=== PATIENT | male | born 2005 | race Caucasian/White ===

== ENCOUNTER 2024-07-24 19:34 | Emergency (ER) | payer OTHER, SELFPAY ==
--- OUTSIDE RECORDS SUMMARY | 2024-07-24 19:36 | XMS_ITS | Referral Summary ---
Author Organization [facility] Address [address] [place] [address] Care Team Providers Care City Manager Name Role Phone Sam Shaver DO Primary Care Provider [phone] Allergies Active Allergy Reactions Criticality Noted Date Comments Bee Other 11/26/2019 Carries Epi pen Cats Unknown Reaction 11/26/2019 Meningococcal Group B Vaccine Hives,Other Medium 11/27/2023 Joint swelling Medications Cholecalciferol (VITAMIN D) 1000 UNITS PO Tab Take 1 Tab by mouth once per day. Active [place]-3 Fatty Acids (OMEGA 3 PO) Take by mouth. Activ e Cyanocobalamin (VITAMIN B 12 PO) Take by mouth. Activ e Albuterol HFA Inhaler 108 (90 Base) MCG/ACT IN Aero SolnIndications :Bronchodilatio n Therapy 2 Puffs inhale every 6 hours as needed. 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 went away Immunizations Name Administration Dates Next Due DTaP 01/13/2008, 5,06/30/2004,04/16,03/03/2004 Dtap (Daptacel) 01/13/2008, 5,06/30/2004,04/16,03/03/2004 HIB (Haemophilus) 01/04/2005, 5,05/03/2004,02/14 HPV9 (Gardasil9) 05/31/2020,01/27/2020, 0 Hep A Ped/adol 2 Dose Rob 01/13/2008,01/09/2007 Hep B Peds/adol, 3 Dose Rob 10/10/2004, 4,01/26/2004 Influenza (Quadrivalent) 01/27/2020,04/19/2017,1 Influenza H1N1 06/04/2009,04/23/2009 Influenza H1n1 Injection 06/04/2009,04/23/2009 Influenza Quadrivalent Nasal (Flumist) 03/01/2015 Influenza Quadrivalent Prese rvative Free 02/12/2021,04/19/2017 Influenza, Injectable, Mdck, Preservative Free, Quadrival 01/29/2019 Influenza, live, trivalent, intranasal 03/19/2008 Influenza, split virus, trivalent, PF 04/17/2024 MMR 01/13/2008,01/04/2005 Meningococcal B, Recombinant (Trumenba) 11/23/2023,11/01/2022 Meningococcal Mcv4p (Menactra) 01/27/2020,2015 PSV7 (PREVNAR) 01/04/2005, 5,05/03/2004,02/14 Pneumococcal 01/04/2005, 5,05/03/2004,02/14 Polio (IPV) 01/13/2008, 8,06/30/2004,02/15 Tdap (Adacel) 2014 2024 Varicella 01/13/2008,01/04/2005 Social History Tobacco Use Types Packs/Day Years Used Date Smoking Tobacco: Never Smokeless Tobacco: Never Tobacco Cessation:Counseling Given: Not Answered Sex and Gender Information Value Date Recorded Sex Assigned at Male 10/30/2022 9:28 AM CDT Legal Sex Male 12:00 PM CDT Gender Identity Male 10/30/2022 9:28 AM CDT Sexual Orientation Bisexual 11/23/2023 7: 26 AM CDT Last Filed Vital Signs Vital Sign Reading Time Taken Comments Blood Pressure 138/66 04/17/2024 7:26 AM MANAGER DELI Pulse 78 04/17/2024 7:26 AM MANAGER DELI Temperature 37.1 C (98.7 F) 04/17/2024 7:26 AM MANAGER DELI Respiratory Rate 16 11/23/2023 7:56 AM CDT Oxygen Saturation 99% 11/01/2022 7:48 AM CDT Inhaled Oxygen Concentration - - Weight 63.7 kg (140 lb 8 oz) 04/17/2024 7:26 AM MANAGER DELI Height 175.9 cm (5' 9.25) 11/23/2023 7:56 AM CD T Body Mass Index 20.6 11/23/2023 7:56 AM CDT Plan of Treatment Not on file Insurance ALL OTHER [facility] ALL OTHER Care Teams City Manager Relationship Specialty Start Date End Date Sam Shaver DO [address] [place] [address] [email or web address] PCP - General Family Medicine 12/18/20
--- OUTSIDE RECORDS SUMMARY | 2024-07-24 19:37 | XMS_ITS | Clinical Summary ---
Author Organization [facility] Address [address] [place] [address] Care Team Providers Care Acetylene Torch Solderer Name Role Phone Sam Shaver DO Primary Care Provider Allergies Active Allergy Reactions Criticality Noted Date Comments Bee Other 11/26/2019 Carries Epi pen Cats Unknown Reaction 11/26/2019 Meningococcal Group B Vaccine Hives,Other Medium 11/27/2023 Joint swelling Medications Cholecalciferol (VITAMIN D) 1000 UNITS PO Tab Take 1 Tab by mouth once per day. Active [place]-3 Fatty Acids (OMEGA 3 PO) Take by [...] 8,06/30/2004,02/15 Tdap (Adacel) 2014 2024 Varicella 01/13/2008,01/04/2005 Family History Medical History Relation Name Comments Tremor Father Other Maternal Grandmother pvc Blood Disease Mother ITP Other Mother anemia Hypertension Paternal Uncle Relation Name Status Comments Father Alive Michael 6'0 QA Mgr Maternal Grandmother Alive Mother Estee Batista 5'4 SAHM Paternal Uncle Alive Social History Tobacco Use Types Packs/Day Years Used Date Smoking Tobacco: Never Smokeless Tobacco: Never Tobacco Cessation:Counseling Given: Not Answered Sex and Gender Information Value Date Recorded Sex Assigned at Male 10/30/2022 9:28 AM CDT Legal Sex Male 12:00 PM CDT Gender Identity Male 10/30/2022 9:28 AM CDT Sexual Orientation Bisexual 11/23/2023 7 :26 AM CDT Last Filed Vital Signs Vital Sign Reading Time Taken Comments Blood Pressure 138/66 04/17/2024 7:26 AM TANK BUILDER AND ERECTOR Pulse 78 04/17/2024 7:26 AM TANK BUILDER AND ERECTOR Temperature 37.1 C (98.7 F) 04/17/2024 7:26 AM TANK BUILDER AND ERECTOR Respiratory Rate 16 11/23/2023 7:56 AM CDT Oxygen Saturation 99% 11/01/2022 7:48 AM CDT Inhaled Oxygen Concentration - - Weight 63.7 kg (140 lb 8 oz) 04/17/2024 7:26 AM TANK BUILDER AND ERECTOR Height 175.9 cm (5' 9.25) 11/23/2023 7:56 AM CD T Body Mass Index 20.6 11/23/2023 7:56 AM CDT Plan of Treatment Health Maintenance Due Date Last Done Comments COVID-19 Vaccine ( season) 2023 04/02/2021, 08/27/2020, 08/04/2020 Depression Screening 11/22/2024 11/23/2023 DTaP/Tdap/Td Vaccines (7 - Td or Tdap) 2024 2014, 01/13/2008, 01/13/2008, Additional history exists Physical 11/22/2026 11/23/2023 Pneumococcal: Pediatric/ High Risk Adult 18-64 Aged Out 01/04/2005, 01/04/2005, 06/30/2004, Additional history exists No longer eligible based on patient's age to complete this topic HPV VACCINE Completed 05/31/2020, 01/14, 11/26/2019 FLU VACCINE Completed 04/17/2024, 01/16, 01/27/2020, Additional history exists Insurance [employer] ALL OTHER [employer] ALL OTHER Care Teams Acetylene Torch Solderer Relationship Specialty Start Date End Date Sam Shaver DO [address] [place] [address] [email or web address] PCP - General Family Medicine 12/18/20
[2024-07-24 19:40] VITALS: BP 136/76; PULSE 73; RESP 16; TEMP 36.9; O2SAT 100; BMI 19.6
--- NOTE | 2024-07-24 20:21 | ED_ITS ---
HPI - Chest Pain General Chief Complaint: Chest Pain Stated Complaint: chest pain Time Seen by Provider: 07/24/24 19:45 History of Present Illness HPI narrative: This 18-year-old male comes in reporting chest discomfort on and off over the past couple days. He states that he also feels some discomfort in the left posterior neck and sometimes down into his left arm. He does not report any nausea, vomiting, lightheadedness, shortness of breath, or diaphoresis. He has good exercise tolerance. He does not have any cardiac risk factors. He was seen about fiber 6 months ago in the clinic with similar complaints and at that time it was thought that this was largely due to anxiety. The patient states that he can reproduce the pain when pushing on certain areas of his chest. Related Data Home Medications ?Medication ?Instructions ?Recorded ?Confirmed No Known Home Medications 03/03/24 03/03/24 Allergies Allergy/AdvReac Type Severity Reaction Status Date / Time meningococcal vaccine B and C Allergy Intermediate Hives Verified 03/03/24 14:26 Review of Systems Status of ROS Reports: 10 or more systems reviewed and unremarkable except as noted in History and below Narrative Constitutional: No fevers, no weight gain or loss. Eyes: No discharge. No vision changes. HENT: No congestion, no sore throat, no ear pain. Cardiovascular: Chest discomfort as described above. He does report some occasional palpitations also. Respiratory: No shortness of breath, no wheezes, no cough. Gastrointestinal: No abdominal pain, no vomiting, no diarrhea. Genitourinary: No dysuria, no hematuria. Musculoskeletal: Normal range of motion. Skin: No rashes, no pruritis. Neurological: No dizziness, weakness, sensory change, speech change. Endo/Heme/Allergies: No bruising or bleeding. No polydipsia. Pysch: no suicidality, no anxiety, no insomnia. All other systems reviewed and are negative. [facility] Social History (Updated 03/03/24 @ 15:13 by Gianna Salter ~ YUN) What is your current living situation?: I presently have a place to live Problems where you live: no known problems In the past 12 months, utilities in danger of being shut off: no In past 12 months, lack of transportation kept you from medical appts, meetings, work, or getting things needed for daily living: no In the past 12 mos, have been you worried that your food would run out before you had money to buy more?: never true In the past 12 mos, the food you bought just didn't last and you didn't have money to buy more?: never true Smoking Status: Never smoker Do you use any of these nicotine containing products: None How often do you have a drink containing alcohol: never AUDIT-C Alcohol total score: 0 Non-prescribed substance use: denies use How often does anyone, including family, friends and others, physically hurt you : never How often does anyone, including family, friends and others, insult or talk down to you: never How often does anyone, including family, friends and others, threaten you with harm: never How often does anyone, including family, friends and others, scream or curse at you: never service: No Exam Narrative Exam Narrative: Constitutional: Well-developed, well-nourished, no acute distress. HEENT: Normocephalic, atraumatic. Neck: Normal range of motion. Nontender. Supple. Heart: Regular. No murmurs. Normal rate. Intact distal pulses. Lungs: Clear to auscultation. No wheezes, rhonchi, or rales. Abdomen: Normal bowel sounds. Nontender. No rebound tenderness. Genitalia: Deferred. Back: No midline tenderness. Normal range of motion. Extremities: Normal range of motion. No injury. Skin: Intact. No rash. Warm. No erythema or pallor. Neurologic: No altered sensation. No weakness. Alert and oriented. Psychiatric: No suicidality. No anxiety or depression. No insomnia. Nursing notes and vitals signs are reviewed. Const Vital Signs, click to edit/add: Vital Signs - 24 hr 07/24/24 19:40 Temperature 98.4 F Pulse Rate [Apical] 73 Respiratory Rate 16 Blood Pressure [Right Upper Arm] 136/76 Pulse Oximetry 100 Oxygen Delivery Method Room Air Course Vital Signs Vital signs: Initial Vital Signs Temperature 98.4 F 07/24/24 19:40 Temperature Source Temporal Artery Scan 07/24/24 19:40 Pulse Rate 73 07/24/24 19:40 Pulse Rhythm Regular 07/24/24 19:40 Respiratory Rate 16 07/24/24 19:40 Blood Pressure 136/76 07/24/24 19:40 Blood Pressure Mean 96 07/24/24 19:40 Pulse Oximetry 100 07/24/24 19:40 Oxygen Delivery Method Room Air 07/24/24 19:40 Vital Signs Temperature 98.4 F 07/24/24 19:40 Pulse Rate 73 07/24/24 19:40 Respiratory Rate 16 07/24/24 19:40 Blood Pressure 136/76 07/24/24 19:40 Pulse Oximetry 100 07/24/24 19:40 Oxygen Delivery Method Room Air 07/24/24 19:40 Temperature 98.4 F 07/24/24 19:40 Pulse Rate 73 07/24/24 19:40 Respiratory Rate 16 07/24/24 19:40 Blood Pressure 136/76 07/24/24 19:40 Pulse Oximetry 100 07/24/24 19:40 Oxygen Delivery Method Room Air 07/24/24 19:40 MDM - Chest Pain MDM Narrative Medical decision making narrative: This patient comes in with report of chest discomfort as described above. He also has some pain in the left posterior neck and sometimes has symptoms going down into his arm. I did perform a Spurling's test by having him extend his head back and rotate to the left. He did begin to feel some tingling in his fingers with this maneuver which may suggest some evidence of nerve impingement. An EKG was done and shows normal sinus rhythm. I did discuss lab and imaging options with the patient but these were declined as it is seems that he is sufficiently satisfied with the workup done so far. He will use [id number] medicines also as needed and directed. ECG Data Attestation: I personally reviewed and interpreted this ECG as follows: Interpretation: Normal sinus rhythm. Rate is 71 beats per minute. There are no ST or T-wave abnormalities. Discharge Plan Discharge Clinical Impression: Acute chest wall pain Patient Disposition: Home, Self-Care Condition: Stable Additional Instructions: Use [id number] medicines as needed and directed. Activity as tolerated. Follow up with MD return if worsening. Prescriptions: No Action No Known Home Medications Follow Up/Referrals: Krishna Green MD [Primary Care Provider] - Stand Alone Forms: [facility] Info Instructions
--- OUTSIDE RECORDS SUMMARY | 2024-07-24 20:50 | XMS_ITS | Clinical Summary ---
Author Organization [facility] Address [address] [place] [address] Care Team Providers Care Bridge Painter Name Role Phone Unavailable Primary Care Provider Unavailabl e Source Comments In the event that this is information that is protected by federal Confidentiality of Substance UseDisorder Patient Records, 42 CFR Part 2 prohibits the unauthorized disclosure of these records.[facility] Allergies No known active allergies Immunizations Immunization Administration Dates Next Due DTaP, 5 pertussis antigens (DAPTACEL) ,03/31/2005,06/30/2004,05/03,03/03/2004 HISTORICAL CloudSync-Clear Advantage Collar M ONOVALENT COVID VACCINE (12YR+, [id number]) 04/02/2021 Haemophilus (Hib) (Historical) 5,06/30/2004,05/03/2004,03/03 Hep A (Ped/adol) 2-dose 01/13/2008,01/09/2007 Hepatitis B (Adol/ped) 10/10/2004,03/08/2004,03/2004 IPV 01/13/2008, 8,06/30/2004,03/08 Influenza (H1N1) 06/04/2009,04/23/2009 Influenza (Intramuscular) 36 MOS+ 03/15/2016 Influenza (Quad) IM w/preservative 02/08/2007 Influenza (live, nasal) Trivalent 03/19/2008 MMR 01/13/2008,01/04/2005 Meningococcal Conjugate 03/15/2016 Pneumococcal-nos (Historical) 01/04/2005 ,06/30/2004,05/03/2004,03/03 Varicella 01/13/2008,01/04/2005 Family History Medical History Relation Name Comments Allergies Maternal Grandfather Hypertension Maternal Grandmother Autoimmune Disorder Mother Cancer Other Other Relation: Aunt; Hyperlipidemia Paternal Grandmother Hypertension Paternal Grandmother Relation Name Status Comments Maternal Grandfather Maternal Grandmother Mother Other Other Paternal Grandmother Social History Tobacco Use Types Packs/Day Years Used Date Smoking Tobacco: Unknown [employer] Answer Date Recorded Please choose the link for ' [employer]'above to launch [employer], a personalized community referral platform for a patient's SDOH needs. - 04/02/2021 Sex and Gender Information Value Date Recorded Sex Assigned at Not on file Legal Sex Male 10:55 AM CONSUMER CREDIT COUNSELOR Gender Identity Male 03/24/2021 11:04 AM CONSUMER CREDIT COUNSELOR Sexual Orientation Not on file Last Filed Vital Signs Vital Sign Reading Time Taken Comments Blood Pressure 137/76 03/15/2016 10:41 AM CONSUMER CREDIT COUNSELOR Pulse 128 03/15/2016 10:41 AM CONSUMER CREDIT COUNSELOR Temperature 37.4 C (99.3 F) 03/15/2016 10:41 AM CONSUMER CREDIT COUNSELOR Respiratory Rate - - Oxygen Saturation - - Inhaled Oxygen Concentration - - Weight 51.3 kg (113 lb) 03/15/2016 10:41 AM CONSUMER CREDIT COUNSELOR Height 160 cm (5' 3) 03/15/2016 10:41 AM CONSUMER CREDIT COUNSELOR Body Mass Index 20.02 03/15/2016 10:41 AM CONSUMER CREDIT COUNSELOR Plan of Treatment Health Maintenance Due Date Last Done Comments HIV SCREENING 12/30/2018 MENINGOCOCCAL B (MENB) (1 of 2 - Standard) 2019 HEPATITIS C SCREENING 12/30/2021 LIPID TESTING 12/30/2021 03/15/2016 COVID-19 VACCINE (2 - season) 2023 04/02/2021 INFLUENZA (Season Ended) 2024 020, 01/29/2019, 04/19/2017, Additional history exists DTAP/TDAP/TD (7 - Td or Tdap) 2024 2014, 01/13/2008, 01/13/2008, Additional history exists Pneumococcal 0-49 Aged Out 01/04/2005, , 06/30/2004, Additional history exists No longer eligible based on patient's age to complete this topic MENINGOCOCCAL CONJUGATE (MCV4) Completed 01/27/2020, 03/15/2016 HPV Completed 05/31/2020, 01/14, 11/26/2019 Procedures Procedure Name Priority Date/Time Associated Diagnosis Comments CHOLESTEROL, TOTAL Routine 03/15/2016 11 :33 AM CONSUMER CREDIT COUNSELOR from Last 3 Months or Most Recently Relevant to Health Maintenance Results * Cholesterol, Total (03/15/2016 11:33 AM CONSUMER CREDIT COUNSELOR) Total Cholesterol 135 mg/dL [facility] Comment:Optimal (not to be c onstrued as a target for drug therapy): <170 mg/dL 03/15/2016 11:3 3 AM CONSUMER CREDIT COUNSELOR Shai Feliciano MD CHEMISTRY ORDERABLES Final R esult [facility] [address] [place] [address] from Last 3 Months or Most Recently Relevant to Health Maintenance Insurance [employer] POS
== END 2024-07-24 20:48 | disposition home or self-care (01) ==
LOC: ED 20:48
PROVIDERS: Emergency Provider Emergency Medicine Emergency Medical Services; PCP Family Medicine
DX: R07.89 Other chest pain (principal)
CPT/HCPCS: 99283; 99284